=== PATIENT | female | born 1950 | race Caucasian/White ===

== ENCOUNTER 2017-08-13 06:56 | Day surgery (SDC) | payer MEDICARE ==
[~2017-08-13] VITALS: Ht 160 cm; Wt 89.9 kg
[~2017-08-13 06:56] MED LIST: AEC81 PO; CALC-322 PO; CELE100C97 PO; LEVO150T11 PO; PRAV80TA21 PO; UBID100C10 PO; VITAMIN B 100 PO
[2017-08-13] MEDS ORDERED: SODIUM CHLORIDE 0.9% 1000ML 1,000 ML IV ONE (07:00)
[2017-08-13 07:32] VITALS: BP 137/62
[2017-08-13 08:48] VITALS: BP 105/56
[2017-08-13 09:08] VITALS: BP 109/64
== END 2017-08-13 09:37 ==
LOC: DAH 06:56 → ENDO 06:56
PROVIDERS: ATTEND Internal Medicine Gastroenterology
DX: Z12.11 Encounter for screening for malignant neoplasm of colon (principal); K56.2 Volvulus; E03.9 Hypothyroidism, unspecified; K21.9 Gastro-esophageal reflux disease without esophagitis; Z90.49 Acquired absence of other specified parts of digestive tract; Z90.710 Acquired absence of both cervix and uterus; Z83.71 Family history of colonic polyps; Z68.35 Body mass index [BMI] 35.0-35.9, adult; F17.200 Nicotine dependence, unspecified, uncomplicated; E07.9 Disorder of thyroid, unspecified
CPT/HCPCS: A4606; G0105; J7030